=== PATIENT | male | born 1960 | race African-American/Black ===

== ENCOUNTER 2022-06-12 15:55 | Inpatient (IN) | payer OTHER ==
[2022-06-12 16:59] VITALS: BMI 20.3
[2022-06-12] MEDS ORDERED: NICOTINE POLACRILEX 2 MG GUM BUC PRN (18:06)
[2022-06-12] MEDS ORDERED: IBUPROFEN 600 MG TABLET (FP) PO PRN (18:06)
[2022-06-12] MEDS ORDERED: NALOXONE HCL 0.4 MG/ML VIAL IM PRN (18:06)
[2022-06-12] MEDS ORDERED: BENZONATATE 200 MG CAPSULE PO PRN (18:06)
[2022-06-12] MEDS ORDERED: BACLOFEN 10 MG TABLET (FP) PO PRN (18:06)
[2022-06-12] MEDS ORDERED: IBUPROFEN 400 MG TABLET (FP) PO PRN (18:06)
[2022-06-12] MEDS ORDERED: LOPERAMIDE HCL 2 MG CAPSULE PO PRN (18:06)
[2022-06-12] MEDS ORDERED: guaiFENesin 600 MG TABLET.ER (FP) PO PRN (18:06)
[2022-06-12] MEDS ORDERED: ACETAMINOPHEN 325 MG TABLET (FP) PO PRN (18:06)
[2022-06-12] MEDS ORDERED: DICYCLOMINE HCL 10 MG CAPSULE PO PRN (18:06)
[2022-06-12] MEDS ORDERED: MAGNESIUM HYDROX 2400MG/30ML ORAL SUSPENSION 30 ML CUP PO PRN (18:06)
[2022-06-12] MEDS ORDERED: POLYETHYLENE GLYCOL (HEALTHYLAX) 3350 17 GM PACKET PO PRN (18:06)
[2022-06-12] MEDS ORDERED: BISMUTH SUBSALICYLATE 524 MG/30 ML PO PRN (18:06)
[2022-06-12] MEDS ORDERED: NICOTINE 10 MG CARTRIDGE (INHALER) IH PRN (18:06)
[2022-06-12] MEDS ORDERED: ONDANSETRON *ODT* 4 MG TABLET SL PRN (18:06)
[2022-06-12] MEDS ORDERED: BENZOCAINE/MENTHOL (CHLORASEPTIC ) LOZENGE MM PRN (18:06)
[2022-06-12] MEDS ORDERED: NALOXONE HCL (KLOXXADO) 8 MG SPRAY NS PRN (18:06)
[2022-06-12] MEDS ORDERED: MAG HYDROX/AL HYDROX/SIMETH 30 ML UNIT-DOSE CUP PO PRN (18:06)
[2022-06-12] MEDS: MELATONIN 5 MG TABLETS PO SCH (21:36)
[2022-06-12] MEDS: THIAMINE HCL 100 MG TABLET (FP) PO SCH (21:36)
[2022-06-13] MEDS ORDERED: PATIENT'S OWN MEDICATION (NON-FORMULARY) (Lisinopril/Hydrochlorothiazide [Lisinopril-Hctz PO SCH (10:00)
[2022-06-13 10:10] LABS: ALBUMIN 3.3 g/dl (3.4-5.0); CALCIUM 9.4 mg/dL (8.5-10.1)
[2022-06-13 10:14] LABS: CREATININE 1.1 mg/dL (0.55-1.3)
[2022-06-13 10:16] LABS: BILIRUBIN,TOTAL 0.6 mg/dL (0.2-1); TOT PROT 8.6 g/dl (6.4-8.2)
[2022-06-13 10:19] LABS: HEMATOCRIT 33.9 % (35.4-49); HEMOGLOBIN 11.7 GM/dL (11.7-16.9); MCH 29.2 pg (25.7-33.7); MCHC 34.5 g/dl (32.0-35.9); MEAN CELL VOLUME 84.6 fl (80-96); MEAN PLT VOLUME 7.7 fl (7.5-11.1); PLATELET COUNT 361 10^3/uL (134-434); RDW 16.8 % (11.9-15.9); WHITE BLOOD COUNT 5.1 K/mm3 (4.0-10.0)
[2022-06-13] MEDS: amLODIPine BESYLATE 10 MG TABLET (FP) PO SCH (10:24)
[2022-06-13] MEDS: PRENATAL VITAMINS W/ FOLIC ACID TABLET (FP) PO SCH (10:27)
[2022-06-13] MEDS: DARUNAVIR ETHANOLATE 800 MG TAB PO SCH (12:13)
[2022-06-13] MEDS: EMTRICITABINE 200MG/TENOFOVIR 300MG PO SCH (12:14)
[2022-06-13] MEDS: RITONAVIR 100 MG TABLET PO SCH (12:14)
[2022-06-13] MEDS: THIAMINE HCL 100 MG TABLET (FP) PO SCH (22:34)
[2022-06-13] MEDS: MELATONIN 5 MG TABLETS PO SCH (22:34)
[2022-06-14] MEDS: amLODIPine BESYLATE 10 MG TABLET (FP) PO SCH (10:16)
[2022-06-14] MEDS: RITONAVIR 100 MG TABLET PO SCH (10:16)
[2022-06-14] MEDS: LISINOPRIL 10 MG TABLET PO SCH (10:16)
[2022-06-14] MEDS: HYDROCHLOROTHIAZIDE 12.5 MG CAPSULE (FP) PO SCH (10:16)
[2022-06-14] MEDS: EMTRICITABINE 200MG/TENOFOVIR 300MG PO SCH (10:16)
[2022-06-14] MEDS: PRENATAL VITAMINS W/ FOLIC ACID TABLET (FP) PO SCH (10:16)
[2022-06-14] MEDS: DARUNAVIR ETHANOLATE 800 MG TAB PO SCH (10:17)
[2022-06-14] MEDS: THIAMINE HCL 100 MG TABLET (FP) PO SCH (22:26)
[2022-06-14] MEDS: MELATONIN 5 MG TABLETS PO SCH (22:26)
[2022-06-15] MEDS: DARUNAVIR ETHANOLATE 800 MG TAB PO SCH (10:24)
[2022-06-15] MEDS: LISINOPRIL 10 MG TABLET PO SCH (10:24)
[2022-06-15] MEDS: HYDROCHLOROTHIAZIDE 12.5 MG CAPSULE (FP) PO SCH (10:24)
[2022-06-15] MEDS: PRENATAL VITAMINS W/ FOLIC ACID TABLET (FP) PO SCH (10:24)
[2022-06-15] MEDS: EMTRICITABINE 200MG/TENOFOVIR 300MG PO SCH (10:24)
[2022-06-15] MEDS: amLODIPine BESYLATE 10 MG TABLET (FP) PO SCH (10:24)
[2022-06-15] MEDS: RITONAVIR 100 MG TABLET PO SCH (10:25)
[2022-06-15 17:57] VITALS: BP 113/67; PULSE 75; RESP 18; TEMP 97.7
== END 2022-06-15 18:47 | disposition other institution (70) | DRG 897 ==
LOC: YASAS 15:55 → UNDOADMIN 18:44 → Y3N 18:44
PROVIDERS: ADMIT Allergy & Immunology; ATTEND Surgery
PROC: HZ2ZZZZ Detoxification Services for Substance Abuse Treatment (ICD-10-PCS; principal; 2022-06-12)
DX: F10.230 Alcohol dependence with withdrawal, uncomplicated (principal); F14.20 Cocaine dependence, uncomplicated; F17.210 Nicotine dependence, cigarettes, uncomplicated; F31.9 Bipolar disorder, unspecified; Z21 Asymptomatic human immunodeficiency virus [HIV] infection status; I10 Essential (primary) hypertension; M54.50 Low back pain, unspecified; G89.29 Other chronic pain; M19.90 Unspecified osteoarthritis, unspecified site; Z86.59 Personal history of other mental and behavioral disorders; Z86.19 Personal history of other infectious and parasitic diseases; Z99.89 Dependence on other enabling machines and devices; Z88.2 Allergy status to sulfonamides
CPT/HCPCS: 36415; 80053; 85027; 86780; 87811; C9803-CS; U0003; U0005

== ENCOUNTER 2022-06-15 20:23 | Inpatient (IN) | payer OTHER ==
[2022-06-15] MEDS ORDERED: ACETAMINOPHEN 325 MG TABLET (FP) PO PRN (22:35)
[2022-06-15] MEDS ORDERED: BENZOCAINE/MENTHOL (CHLORASEPTIC ) LOZENGE MM PRN (22:35)
[2022-06-15] MEDS ORDERED: NICOTINE POLACRILEX 2 MG GUM BUC PRN (22:35)
[2022-06-15] MEDS ORDERED: P-EPHED 60MG/TRIPROLIDI 2.5MG TABLET PO PRN (22:35)
[2022-06-15] MEDS ORDERED: BENZONATATE 200 MG CAPSULE PO PRN (22:35)
[2022-06-15] MEDS ORDERED: guaiFENesin 600 MG TABLET.ER (FP) PO PRN (22:35)
[2022-06-15] MEDS ORDERED: POLYETHYLENE GLYCOL (HEALTHYLAX) 3350 17 GM PACKET PO PRN (22:35)
[2022-06-15] MEDS ORDERED: LOPERAMIDE HCL 2 MG CAPSULE PO PRN (22:35)
[2022-06-15] MEDS ORDERED: MAGNESIUM HYDROX 2400MG/30ML ORAL SUSPENSION 30 ML CUP PO PRN (22:35)
[2022-06-15] MEDS ORDERED: MAG HYDROX/AL HYDROX/SIMETH 30 ML UNIT-DOSE CUP PO PRN (22:35)
[2022-06-16] MEDS ORDERED: LISINOPRIL 10 MG TABLET PO SCH (10:00)
[2022-06-16] MEDS ORDERED: PATIENT'S OWN MEDICATION (NON-FORMULARY) (Lisinopril/Hydrochlorothiazide [Lisinopril-Hctz PO SCH (10:00)
[2022-06-16] MEDS ORDERED: RITONAVIR 100 MG TABLET PO SCH (10:00)
[2022-06-16] MEDS ORDERED: HYDROCHLOROTHIAZIDE 12.5 MG CAPSULE (FP) PO SCH (10:00)
[2022-06-16] MEDS ORDERED: DARUNAVIR ETHANOLATE 800 MG TAB PO SCH (10:00)
[2022-06-16] MEDS ORDERED: EMTRICITABINE 200MG/TENOFOVIR 300MG PO SCH (10:00)
[2022-06-16] MEDS: amLODIPine BESYLATE 10 MG TABLET (FP) PO SCH (10:06)
[2022-06-16] MEDS: PRENATAL VITAMINS W/ FOLIC ACID TABLET (FP) PO SCH (10:07)
[2022-06-16] MEDS ORDERED: PATIENT'S OWN MEDICATION (NON-FORMULARY) (Atenolol/Chlorthalidone [Atenolol-Chlorthalidone PO SCH (16:00)
[2022-06-16] MEDS: TAMSULOSIN HCL 0.4 MG CAP PO SCH (17:14)
[2022-06-16] MEDS: EMTRICITABINE/TENOFOV ALAFENAM (DESCOVY) TABLET PO SCH (19:57)
[2022-06-16] MEDS: DOLUTEGRAVIR SODIUM 50 MG TABLET (NON-FORMULARY) PO SCH (19:59)
[2022-06-16] MEDS: THIAMINE HCL 100 MG TABLET (FP) PO SCH (21:32)
[2022-06-16] MEDS: MELATONIN 5 MG TABLETS PO PRN (21:32)
[2022-06-17] MEDS: amLODIPine BESYLATE 10 MG TABLET (FP) PO SCH (09:51)
[2022-06-17] MEDS: CHLORTHALIDONE 25 MG TABLET PO SCH (09:51)
[2022-06-17] MEDS: EMTRICITABINE/TENOFOV ALAFENAM (DESCOVY) TABLET PO SCH (09:51)
[2022-06-17] MEDS: ATENOLOL 50 MG TABLET (FP) PO SCH (09:51)
[2022-06-17] MEDS: PRENATAL VITAMINS W/ FOLIC ACID TABLET (FP) PO SCH (09:51)
[2022-06-17] MEDS: DOLUTEGRAVIR SODIUM 50 MG TABLET (NON-FORMULARY) PO SCH (09:51)
[2022-06-17] MEDS: TAMSULOSIN HCL 0.4 MG CAP PO SCH (09:52)
[2022-06-17] MEDS: IBUPROFEN 600 MG TABLET (FP) PO PRN (14:51)
[2022-06-17] MEDS: MELATONIN 5 MG TABLETS PO PRN (21:34)
[2022-06-17] MEDS: THIAMINE HCL 100 MG TABLET (FP) PO SCH (21:34)
[2022-06-18] MEDS: TAMSULOSIN HCL 0.4 MG CAP PO SCH (10:02)
[2022-06-18] MEDS: amLODIPine BESYLATE 10 MG TABLET (FP) PO SCH (10:02)
[2022-06-18] MEDS: ATENOLOL 50 MG TABLET (FP) PO SCH (10:02)
[2022-06-18] MEDS: CHLORTHALIDONE 25 MG TABLET PO SCH (10:02)
[2022-06-18] MEDS: PRENATAL VITAMINS W/ FOLIC ACID TABLET (FP) PO SCH (10:02)
[2022-06-18] MEDS: DOLUTEGRAVIR SODIUM 50 MG TABLET (NON-FORMULARY) PO SCH (10:03)
[2022-06-18] MEDS: EMTRICITABINE/TENOFOV ALAFENAM (DESCOVY) TABLET PO SCH (10:03)
[2022-06-18] MEDS: IBUPROFEN 400 MG TABLET (FP) PO PRN (17:52)
[2022-06-18] MEDS: THIAMINE HCL 100 MG TABLET (FP) PO SCH (21:21)
[2022-06-18] MEDS: MELATONIN 5 MG TABLETS PO PRN (21:21)
[2022-06-19] MEDS: ATENOLOL 50 MG TABLET (FP) PO SCH (10:10)
[2022-06-19] MEDS: PRENATAL VITAMINS W/ FOLIC ACID TABLET (FP) PO SCH (10:10)
[2022-06-19] MEDS: CHLORTHALIDONE 25 MG TABLET PO SCH (10:11)
[2022-06-19] MEDS: amLODIPine BESYLATE 10 MG TABLET (FP) PO SCH (10:11)
[2022-06-19] MEDS: TAMSULOSIN HCL 0.4 MG CAP PO SCH (10:11)
[2022-06-19] MEDS: EMTRICITABINE/TENOFOV ALAFENAM (DESCOVY) TABLET PO SCH (10:12)
[2022-06-19] MEDS: DOLUTEGRAVIR SODIUM 50 MG TABLET (NON-FORMULARY) PO SCH (10:13)
[2022-06-19] MEDS: IBUPROFEN 600 MG TABLET (FP) PO PRN ×2 (11:02→23:40)
[2022-06-19] MEDS: THIAMINE HCL 100 MG TABLET (FP) PO SCH (21:06)
[2022-06-19] MEDS: MELATONIN 5 MG TABLETS PO PRN (21:06)
[2022-06-20] MEDS: PRENATAL VITAMINS W/ FOLIC ACID TABLET (FP) PO SCH (09:39)
[2022-06-20] MEDS: amLODIPine BESYLATE 10 MG TABLET (FP) PO SCH (09:40)
[2022-06-20] MEDS: CHLORTHALIDONE 25 MG TABLET PO SCH (09:40)
[2022-06-20] MEDS: TAMSULOSIN HCL 0.4 MG CAP PO SCH (09:40)
[2022-06-20] MEDS: EMTRICITABINE/TENOFOV ALAFENAM (DESCOVY) TABLET PO SCH (09:40)
[2022-06-20] MEDS: ATENOLOL 50 MG TABLET (FP) PO SCH (09:40)
[2022-06-20] MEDS: DOLUTEGRAVIR SODIUM 50 MG TABLET (NON-FORMULARY) PO SCH (09:40)
[2022-06-20] MEDS: IBUPROFEN 400 MG TABLET (FP) PO PRN (18:54)
[2022-06-20] MEDS: THIAMINE HCL 100 MG TABLET (FP) PO SCH (21:28)
[2022-06-20] MEDS: MELATONIN 5 MG TABLETS PO PRN (21:28)
[2022-06-21] MEDS: ATENOLOL 50 MG TABLET (FP) PO SCH (10:34)
[2022-06-21] MEDS: PRENATAL VITAMINS W/ FOLIC ACID TABLET (FP) PO SCH (10:34)
[2022-06-21] MEDS: TAMSULOSIN HCL 0.4 MG CAP PO SCH (10:35)
[2022-06-21] MEDS: EMTRICITABINE/TENOFOV ALAFENAM (DESCOVY) TABLET PO SCH (10:35)
[2022-06-21] MEDS: amLODIPine BESYLATE 10 MG TABLET (FP) PO SCH (10:36)
[2022-06-21] MEDS: CHLORTHALIDONE 25 MG TABLET PO SCH (10:36)
[2022-06-21] MEDS: DOLUTEGRAVIR SODIUM 50 MG TABLET (NON-FORMULARY) PO SCH (10:38)
[2022-06-21] MEDS: IBUPROFEN 600 MG TABLET (FP) PO PRN (19:22)
[2022-06-21] MEDS: THIAMINE HCL 100 MG TABLET (FP) PO SCH (22:11)
[2022-06-21] MEDS: MELATONIN 5 MG TABLETS PO PRN (22:11)
[2022-06-22] MEDS ORDERED: ACETAMINOPHEN 325 MG TABLET (FP) PO PRN (09:41)
[2022-06-22] MEDS ORDERED: IBUPROFEN 600 MG TABLET (FP) PO PRN (09:41)
[2022-06-22] MEDS: PRENATAL VITAMINS W/ FOLIC ACID TABLET (FP) PO SCH (09:47)
[2022-06-22] MEDS: DOLUTEGRAVIR SODIUM 50 MG TABLET (NON-FORMULARY) PO SCH (09:47)
[2022-06-22] MEDS: EMTRICITABINE/TENOFOV ALAFENAM (DESCOVY) TABLET PO SCH (09:47)
[2022-06-22] MEDS: ATENOLOL 50 MG TABLET (FP) PO SCH (09:48)
[2022-06-22] MEDS: CHLORTHALIDONE 25 MG TABLET PO SCH (09:48)
[2022-06-22] MEDS: TAMSULOSIN HCL 0.4 MG CAP PO SCH (09:48)
[2022-06-22] MEDS: amLODIPine BESYLATE 10 MG TABLET (FP) PO SCH (09:48)
[2022-06-22 10:46] VITALS: PULSE 68
[2022-06-22 16:32] VITALS: BP 137/78; RESP 20; TEMP 97.3
== END 2022-06-22 16:35 | disposition home or self-care (01) | DRG 895 ==
LOC: YASAS 20:23 → Y3W 20:25
PROVIDERS: ADMIT Allergy & Immunology; ATTEND Psychiatry & Neurology Pain Medicine
PROC: HZ42ZZZ Group Counseling for Substance Abuse Treatment, Cognitive-Behavioral (ICD-10-PCS; principal; 2022-06-15)
DX: F10.20 Alcohol dependence, uncomplicated (principal); F14.20 Cocaine dependence, uncomplicated; F17.210 Nicotine dependence, cigarettes, uncomplicated; F31.9 Bipolar disorder, unspecified; Z21 Asymptomatic human immunodeficiency virus [HIV] infection status; I10 Essential (primary) hypertension; M54.50 Low back pain, unspecified; G89.29 Other chronic pain; Z86.19 Personal history of other infectious and parasitic diseases; Z79.899 Other long term (current) drug therapy; Z99.89 Dependence on other enabling machines and devices; Z88.2 Allergy status to sulfonamides

== ENCOUNTER 2023-10-23 15:02 | Inpatient (IN) | payer OTHER ==
[2023-10-23 17:07] VITALS: BMI 19.5
[2023-10-23] MEDS ORDERED: hydrOXYzine PAMOATE 25 MG CAPSULE (FP) PO PRN (20:24)
[2023-10-23] MEDS ORDERED: ONDANSETRON *ODT* 4 MG TABLET SL PRN (20:24)
[2023-10-23] MEDS ORDERED: DICYCLOMINE HCL 10 MG CAPSULE PO PRN (20:24)
[2023-10-23] MEDS ORDERED: IBUPROFEN 600 MG TABLET (FP) PO PRN (20:24)
[2023-10-23] MEDS ORDERED: ACETAMINOPHEN 325 MG TABLET (FP) PO PRN (20:24)
[2023-10-23] MEDS ORDERED: LOPERAMIDE HCL 2 MG CAPSULE PO PRN (20:24)
[2023-10-23] MEDS ORDERED: guaiFENesin 600 MG TABLET.ER (FP) PO PRN (20:24)
[2023-10-23] MEDS ORDERED: BENZONATATE 200 MG CAPSULE PO PRN (20:24)
[2023-10-23] MEDS ORDERED: MAGNESIUM HYDROX 2400MG/30ML ORAL SUSPENSION 30 ML CUP PO PRN (20:24)
[2023-10-23] MEDS ORDERED: NICOTINE POLACRILEX 2 MG GUM BUC PRN (20:24)
[2023-10-23] MEDS ORDERED: BISMUTH SUBSALICYLATE 524 MG/30 ML PO PRN (20:24)
[2023-10-23] MEDS ORDERED: METHOCARBAMOL 500 MG TABLET PO PRN (20:24)
[2023-10-23] MEDS ORDERED: POLYETHYLENE GLYCOL (HEALTHYLAX) 3350 17 GM PACKET PO PRN (20:24)
[2023-10-23] MEDS ORDERED: NALOXONE HCL 0.4 MG/ML VIAL IM PRN (20:24)
[2023-10-23] MEDS ORDERED: BENZOCAINE/MENTHOL (CHLORASEPTIC ) LOZENGE MM PRN (20:24)
[2023-10-23] MEDS ORDERED: diazePAM 5 MG TABLET PO PRN (20:24)
[2023-10-23] MEDS ORDERED: NALOXONE (NARCAN) HCL 4 MG/0.1 ML SPRAY NS PRN (20:24)
[2023-10-23] MEDS ORDERED: amLODIPine BESYLATE 5 MG TABLET (FP) ONE (21:11)
[2023-10-23] MEDS: amLODIPine BESYLATE 10 MG TABLET (FP) PO SCH (21:22)
[2023-10-23] MEDS: MELATONIN 5 MG TABLETS PO SCH (22:04)
[2023-10-23] MEDS: THIAMINE 100 MG TABLET PO SCH (22:05)
[2023-10-23] MEDS: diazePAM 5 MG TABLET PO SCH (22:05)
[2023-10-24] MEDS: TAMSULOSIN HCL 0.4 MG CAP PO SCH (07:34)
[2023-10-24] MEDS: BICTEGRAV/EMTRICIT/TENOFOV (BIKTARVY) 50-200-25 MG TABLET PO SCH (07:35)
[2023-10-24] MEDS ORDERED: PATIENT'S OWN MEDICATION (NON-FORMULARY) (Atenolol/Chlorthalidone [Atenolol-Chlorthalidone PO SCH (10:00)
[2023-10-24 10:10] LABS: HEMATOCRIT 32.2 % (35.4-49); MCH 29.1 pg (25.7-33.7); MCHC 34.3 g/dl (32.0-35.9); PLATELET COUNT 309 10^3/uL (134-434); RBC 3.79 M/mm3 (4.00-5.60); RDW 16.3 % (11.9-15.9); WHITE BLOOD COUNT 4.3 K/mm3 (4.0-10.0)
[2023-10-24] MEDS: CHLORTHALIDONE 25 MG TABLET PO SCH (10:36)
[2023-10-24] MEDS: PRENATAL VITAMINS W/ FOLIC ACID TABLET (FP) PO SCH (10:36)
[2023-10-24] MEDS: NICOTINE 14 MG/24 HOURS TOPICAL PATCH TD SCH (10:36)
[2023-10-24] MEDS: ATENOLOL 50 MG TABLET (FP) PO SCH ×2 (10:53→12:44)
[2023-10-24 10:58] LABS: CHLORIDE 108 mmol/L (98-107); POTASSIUM 4.2 mmol/L (3.5-5.1); SODIUM 139 mmol/L (136-145)
[2023-10-24 11:05] LABS: CALCIUM 9.1 mg/dL (8.5-10.1)
[2023-10-24 11:06] LABS: ALBUMIN 2.8 g/dl (3.4-5.0); ANION GAP 6 mmol/L (4-13); CO2 24 mmol/L (21-32)
[2023-10-24 11:07] LABS: GLUCOSE,RANDOM 98 mg/dL (74-106); SGOT/AST 13 U/L (15-37); SGPT/ALT 11 U/L (13-61)
[2023-10-24 11:09] LABS: BILIRUBIN,TOTAL 0.2 mg/dL (0.2-1); CREATININE 0.9 mg/dL (0.55-1.3)
[2023-10-24 11:10] LABS: ALK PHOS 106 U/L (45-117)
[2023-10-24] MEDS: IBUPROFEN 400 MG TABLET (FP) PO PRN (16:41)
[2023-10-25] MEDS: diazePAM 5 MG TABLET PO SCH (05:27)
[2023-10-25] MEDS: MAG HYDROX/AL HYDROX/SIMETH 30 ML UNIT-DOSE CUP PO PRN (22:31)
[2023-10-26] MEDS: diazePAM 5 MG TABLET PO SCH (05:16)
[2023-10-27] MEDS: diazePAM 5 MG TABLET PO ONE (05:44)
[2023-10-27 06:42] VITALS: TEMP 97.8
[2023-10-27 09:29] VITALS: BP 130/75; PULSE 76; RESP 19
== END 2023-10-27 11:49 | disposition home or self-care (01) | DRG 897 ==
LOC: YASAS 15:02 → Y3N 20:38
PROVIDERS: ADMIT Allergy & Immunology; ATTEND Surgery
PROC: HZ2ZZZZ Detoxification Services for Substance Abuse Treatment (ICD-10-PCS; principal; 2023-10-23)
DX: F10.230 Alcohol dependence with withdrawal, uncomplicated (principal); F12.20 Cannabis dependence, uncomplicated; F31.9 Bipolar disorder, unspecified; Z21 Asymptomatic human immunodeficiency virus [HIV] infection status; I10 Essential (primary) hypertension; M16.11 Unilateral primary osteoarthritis, right hip; N40.0 Benign prostatic hyperplasia without lower urinary tract symptoms; Z96.642 Presence of left artificial hip joint; Z79.899 Other long term (current) drug therapy; Z99.89 Dependence on other enabling machines and devices; Z86.19 Personal history of other infectious and parasitic diseases; Z88.2 Allergy status to sulfonamides
CPT/HCPCS: 36415; 80053; 80305; 80307; 85027; 86780; 93005; 93010

== ENCOUNTER 2024-08-14 14:03 | Inpatient (IN) | payer OTHER ==
[2024-08-14 14:45] VITALS: BMI 18.6
[2024-08-14] MEDS ORDERED: DICYCLOMINE HCL 10 MG CAPSULE PO PRN (15:06)
[2024-08-14] MEDS ORDERED: ACETAMINOPHEN 325 MG TABLET (FP) PO PRN (15:06)
[2024-08-14] MEDS ORDERED: guaiFENesin 600 MG TABLET.ER (FP) PO PRN (15:06)
[2024-08-14] MEDS ORDERED: BENZOCAINE/MENTHOL (CHLORASEPTIC ) LOZENGE MM PRN (15:06)
[2024-08-14] MEDS ORDERED: diazePAM 5 MG TABLET PO PRN (15:06)
[2024-08-14] MEDS ORDERED: POLYETHYLENE GLYCOL (HEALTHYLAX) 3350 17 GM PACKET PO PRN (15:06)
[2024-08-14] MEDS ORDERED: LOPERAMIDE HCL 2 MG CAPSULE PO PRN (15:06)
[2024-08-14] MEDS ORDERED: NALOXONE (NARCAN) HCL 4 MG/0.1 ML SPRAY NS PRN (15:06)
[2024-08-14] MEDS ORDERED: BISMUTH SUBSALICYLATE 262 MG/15 ML BTL PO PRN (15:06)
[2024-08-14] MEDS ORDERED: IBUPROFEN 400 MG TABLET (FP) PO PRN (15:06)
[2024-08-14] MEDS ORDERED: ONDANSETRON *ODT* 4 MG TABLET SL PRN (15:06)
[2024-08-14] MEDS ORDERED: MAGNESIUM HYDROX 2400MG/30ML ORAL SUSPENSION 30 ML CUP PO PRN (15:06)
[2024-08-14] MEDS ORDERED: BENZONATATE 200 MG CAPSULE PO PRN (15:06)
[2024-08-14] MEDS ORDERED: MAG HYDROX/AL HYDROX/SIMETH 30 ML UNIT-DOSE CUP PO PRN (15:06)
[2024-08-14] MEDS ORDERED: NICOTINE POLACRILEX 2 MG GUM BUC PRN (15:14)
[2024-08-14] MEDS ORDERED: diazePAM 5 MG TABLET ONE (17:26)
[2024-08-14] MEDS ORDERED: cloNIDine HCL 0.1 MG TABLET ONE (17:26)
[2024-08-14] MEDS: cloNIDine HCL 0.1 MG TABLET PO ONE (17:28)
[2024-08-14] MEDS: diazePAM 5 MG TABLET PO ONE (17:28)
[2024-08-14] MEDS: diazePAM 5 MG TABLET PO SCH (17:35)
[2024-08-14] MEDS: BACLOFEN 10 MG TABLET (FP) PO PRN (18:09)
[2024-08-14] MEDS: amLODIPine BESYLATE 10 MG TABLET (FP) PO ONE (18:09)
[2024-08-14] MEDS: THIAMINE 100 MG TABLET PO SCH (23:02)
[2024-08-14] MEDS: MELATONIN 5 MG TABLETS PO SCH (23:02)
[2024-08-15] MEDS: ATENOLOL 50 MG TABLET (FP) PO SCH (07:40)
[2024-08-15] MEDS: TAMSULOSIN HCL 0.4 MG CAP PO SCH (07:40)
[2024-08-15] MEDS: BICTEGRAV/EMTRICIT/TENOFOV (BIKTARVY) 50-200-25 MG TABLET PO SCH (07:40)
[2024-08-15] MEDS: CHLORTHALIDONE 25 MG TABLET PO SCH (07:40)
[2024-08-15] MEDS: PRENATAL VITAMINS W/ FOLIC ACID TABLET (FP) PO SCH (09:55)
[2024-08-15] MEDS: NICOTINE 14 MG/24 HOURS TOPICAL PATCH TD SCH (09:55)
[2024-08-15] MEDS: amLODIPine BESYLATE 10 MG TABLET (FP) PO SCH (09:56)
[2024-08-15] MEDS ORDERED: PATIENT'S OWN MEDICATION (NON-FORMULARY) (Atenolol/Chlorthalidone [Atenolol-Chlorthalidone PO SCH (10:00)
[2024-08-15 15:43] LABS: HEMATOCRIT 35.5 % (40.1-51.0); HEMOGLOBIN 11.9 g/dL (13.7-17.5); MCHC 33.5 g/dl (32.3-36.5); MEAN CELL VOLUME 85.7 fl (79.0-92.2); MEAN PLT VOLUME 11.4 fl (9.4-12.4); PLATELET COUNT 267 x10^3/uL (163-337); RDW 14.6 % (12.2-16.4)
[2024-08-15 16:01] LABS: CHLORIDE 106 mmol/L (98-107); POTASSIUM 3.8 mmol/L (3.5-5.1); SODIUM 138 mmol/L (136-145)
[2024-08-15 16:07] LABS: ALBUMIN 3.3 g/dl (3.4-5.0); ANION GAP 6 mmol/L (4-13); BLOOD UREA NITROGEN 18.3 mg/dL (7-18); CO2 25 mmol/L (21-32); GLUCOSE,RANDOM 72 mg/dL (74-106)
[2024-08-15 16:08] LABS: CALCIUM 9.6 mg/dL (8.5-10.1)
[2024-08-15 16:10] LABS: CREATININE 1.1 mg/dL (0.55-1.3); SGOT/AST 20 U/L (15-37); SGPT/ALT 19 U/L (13-61)
[2024-08-15 16:11] LABS: BILIRUBIN,TOTAL 0.3 mg/dL (0.2-1); TOT PROT 9.1 g/dl (6.4-8.2)
[2024-08-15 16:13] LABS: ALK PHOS 131 U/L (45-117)
[2024-08-16] MEDS: diazePAM 5 MG TABLET PO SCH (06:06)
[2024-08-17] MEDS: hydrALAZINE HCL 10 MG TABLET PO ONE ×2 (02:12)
[2024-08-17] MEDS: diazePAM 5 MG TABLET PO SCH (06:11)
[2024-08-17] MEDS: IBUPROFEN 600 MG TABLET (FP) PO PRN (21:02)
[2024-08-17] MEDS: MELATONIN 5 MG TABLETS PO SCH (21:02)
[2024-08-17 22:02] VITALS: TEMP 97.8
[2024-08-18 13:29] VITALS: BP 104/63; PULSE 68; RESP 16
== END 2024-08-18 14:48 | disposition other institution (70) | DRG 897 ==
LOC: YASAS 14:03 → Y6N 17:00
PROVIDERS: ADMIT Allergy & Immunology; ATTEND Allergy & Immunology
PROC: HZ2ZZZZ Detoxification Services for Substance Abuse Treatment (ICD-10-PCS; principal; 2024-08-14)
DX: F10.230 Alcohol dependence with withdrawal, uncomplicated (principal); F14.20 Cocaine dependence, uncomplicated; F19.282 Other psychoactive substance dependence with psychoactive substance-induced sleep disorder; F12.20 Cannabis dependence, uncomplicated; F17.210 Nicotine dependence, cigarettes, uncomplicated; F31.9 Bipolar disorder, unspecified; Z21 Asymptomatic human immunodeficiency virus [HIV] infection status; I10 Essential (primary) hypertension; M54.50 Low back pain, unspecified; G89.29 Other chronic pain; N40.0 Benign prostatic hyperplasia without lower urinary tract symptoms; Z86.19 Personal history of other infectious and parasitic diseases; Z88.2 Allergy status to sulfonamides
CPT/HCPCS: 36415; 80053; 80307; 85027; 86780; 93005; 93010; J0475